=== PATIENT | male | born 1960 | race Caucasian/White ===

== ENCOUNTER 2019-09-22 22:31 | Inpatient (IN) | payer BC ==
[~2019-09-22] VITALS: Ht 172.7 cm; Wt 95.3 kg
[2019-09-22 23:30] VITALS: BP_SYST 114
[2019-09-23] MEDS ORDERED: HYDR25TA4 PO (00:14)
[2019-09-23] MEDS ORDERED: LOSA25TA3 PO (00:14)
[2019-09-23] MEDS ORDERED: ATEN-41 PO (00:14)
[2019-09-23 00:21] LABS: CALCIUM 8.8 mg/dL (8.4-11.0); CREATININE 1.21 mg/dL (0.55-1.30)
[2019-09-23 00:26] LABS: ALBUMIN 3.3 g/dL (3.4-4.8); TOTAL BILIRUBIN 0.7 mg/dL (0.0-1.0)
[2019-09-23 00:30] LABS: BASOPHILS % (AUTO) 0.4 % (0.0-2.0); EOSINOPHILS # (AUTO) 0.2 K/uL (0.0-0.4); EOSINOPHILS % (AUTO) 1.6 % (0.0-4.0); HEMATOCRIT 53.1 % (36-54); LYMPHOCYTES # (AUTO) 1.9 K/uL (1.0-5.5); LYMPHOCYTES % (AUTO) 19.2 % (20.5-51.5); MEAN CORPUSCULAR HEMOGLOBIN 32 pg (27-31); MEAN CORPUSCULAR HGB CONC 34 % (32-36); MEAN CORPUSCULAR VOLUME 95 fL (79.0-98.0); MONOCYTES # (AUTO) 0.7 K/uL (0.0-1.0); MONOCYTES % (AUTO) 7.1 % (1.7-9.3); NEUTROPHILS # (AUTO) 7.2 K/uL (1.8-7.7); NEUTROPHILS % (AUTO) 71.7 % (40.0-70.0); RED BLOOD CELL COUNT(AUTO) 5.61 MIL/uL (4.2-6.2); RED CELL DISTRIBUTION WIDTH 15.4 % (9.0-15.0)
[2019-09-23 00:51] LABS: PLATELET COUNT (AUTO) 189 K/uL (130-430)
[2019-09-23] MEDS ORDERED: NACL 0.9% 1,000 ML IV ONE ×3 (01:02→03:15)
[2019-09-23] MEDS ORDERED: MORPHINE 4 MG/ML INJ. SYRINGE IVP ONE (01:15)
[2019-09-23] MEDS ORDERED: ONDANSETRON HCL 4 MG/2 ML VIAL IVP ONE (01:15)
[2019-09-23] MEDS ORDERED: KETOROLAC TROMETHAMINE 30 MG VIAL IVP ONE (02:15)
[2019-09-23] MEDS ORDERED: DICYCLOMINE HCL 20 MG/2 ML AMP IM ONE (02:15)
[2019-09-23] MEDS ORDERED: ACETAMINOPHEN 325 MG TABLET PO PRN (03:00)
[2019-09-23] MEDS ORDERED: ONDANSETRON HCL 4 MG/2 ML VIAL IVP PRN (03:00)
[2019-09-23] MEDS ORDERED: metroNIDAZOLE 500 mg/NS 100 ML IV ONE (03:00)
[2019-09-23 03:53] LABS: PROTHROMBIN TIME 9.8 SECS (9.5-12.5)
[2019-09-23 04:14] LABS: PHOSPHORUS 3.9 mg/dL (2.7-4.5)
[2019-09-23 05:26] VITALS: BP_SYST 99
[2019-09-23] MEDS ORDERED: LOSA50TA3 PO (05:42)
[2019-09-23 05:55] LABS: FREE T4 (FREE THYROXINE) 0.9 ng/dL (0.6-1.6)
[2019-09-23 05:56] LABS: THYROID STIMULATING HORMONE 2.08 uIu/mL (0.34-4.82)
[2019-09-23 07:45] VITALS: BP_SYST 95
[2019-09-23 12:03] VITALS: BP_SYST 99
[2019-09-23 13:24] LABS: BASOPHILS # (AUTO) 0.3 K/uL (0.0-0.2); BASOPHILS % (AUTO) 2.4 % (0.0-2.0); EOSINOPHILS # (AUTO) 0.5 K/uL (0.0-0.4); EOSINOPHILS % (AUTO) 4.2 % (0.0-4.0); HEMATOCRIT 45.1 % (36-54); HEMOGLOBIN 15.4 g/dL (14.0-18.0); LYMPHOCYTES # (AUTO) 1.7 K/uL (1.0-5.5); MEAN CORPUSCULAR HEMOGLOBIN 32 pg (27-31); MEAN CORPUSCULAR HGB CONC 34 % (32-36); MEAN CORPUSCULAR VOLUME 94 fL (79.0-98.0); MONOCYTES # (AUTO) 0.6 K/uL (0.0-1.0); MONOCYTES % (AUTO) 5.3 % (1.7-9.3); NEUTROPHILS # (AUTO) 8.1 K/uL (1.8-7.7); NEUTROPHILS % (AUTO) 73.1 % (40.0-70.0); PLATELET COUNT (AUTO) 146 K/uL (130-430); RED BLOOD CELL COUNT(AUTO) 4.79 MIL/uL (4.2-6.2); RED CELL DISTRIBUTION WIDTH 15.3 % (9.0-15.0); WHITE BLOOD COUNT (AUTO) 11.1 K/uL (4.8-10.8)
[2019-09-23 13:35] LABS: CALCIUM 7.4 mg/dL (8.4-11.0); CREATININE 1.23 mg/dL (0.55-1.30); POTASSIUM 3.8 mmol/L (3.5-5.1)
[2019-09-23] MEDS: metroNIDAZOLE 500 mg/NS 100 ML IV SCH ×2 (14:19→22:02)
[2019-09-23 16:34] VITALS: BP_SYST 110
[2019-09-23] MEDS: NACL 0.9% 1,000 ML IV SCH (17:11)
[2019-09-23] MEDS: HYDROcodone/ACETAMIN 5-325 MG TAB (NORCO/ VICODIN) PO PRN (18:15)
[2019-09-23] MEDS: LEVOFLOXACIN 500 MG/D5W 100 ML IV SCH (22:02)
[2019-09-24] MEDS: HYDROcodone/ACETAMIN 5-325 MG TAB (NORCO/ VICODIN) PO PRN (01:06)
[2019-09-24] MEDS: NACL 0.9% 1,000 ML IV SCH ×3 (04:02→20:03)
[2019-09-24] MEDS: metroNIDAZOLE 500 mg/NS 100 ML IV SCH ×2 (14:00→22:00)
[2019-09-24] MEDS: LEVOFLOXACIN 500 MG/D5W 100 ML IV SCH (21:00)
[2019-09-25] MEDS: NACL 0.9% 1,000 ML IV SCH ×3 (03:45→19:09)
[2019-09-25] MEDS: metroNIDAZOLE 500 mg/NS 100 ML IV SCH ×3 (06:00→22:00)
[2019-09-25] MEDS ORDERED: IOHEXOL 100 ML IV ONE (10:21)
[2019-09-25] MEDS: LEVOFLOXACIN 500 MG/D5W 100 ML IV SCH (21:00)
[2019-09-26] MEDS ORDERED: LEVOFLOXACIN 500 MG/D5W 100 ML IV ONE (01:02)
[2019-09-26 02:19] VITALS: BP_SYST 122
[2019-09-26] MEDS: NACL 0.9% 1,000 ML IV SCH ×4 (02:51→18:15)
[2019-09-26 05:06] VITALS: BP_SYST 132
[2019-09-26] MEDS: metroNIDAZOLE 500 mg/NS 100 ML IV SCH ×4 (06:00→22:00)
[2019-09-26] MEDS: ATENOLOL 25 MG TABLET(TENORMIN) PO SCH (08:58)
[2019-09-26] MEDS: LACTOBACILLUS RHAMNOSUS GG 1 CAP CAPSULE PO SCH (08:58)
[2019-09-26] MEDS: HYDROCHLOROTHIAZIDE 25 MG TABLET (HCTZ) PO SCH (08:59)
[2019-09-26] MEDS: LOSARTAN POTASSIUM 50 MG TABLET (COZAAR) PO SCH (09:00)
[2019-09-26 11:55] VITALS: BP_SYST 140
[2019-09-26 17:20] VITALS: BP_SYST 132
[2019-09-26 20:00] VITALS: BP_SYST 129
[2019-09-26] MEDS: LEVOFLOXACIN 500 MG/D5W 100 ML IV SCH (21:00)
[2019-09-27] MEDS: NACL 0.9% 1,000 ML IV SCH ×2 (01:57→09:39)
[2019-09-27] MEDS: metroNIDAZOLE 500 mg/NS 100 ML IV SCH (06:00)
[2019-09-27 06:19] LABS: BASOPHILS % (AUTO) 0.4 % (0.0-2.0); EOSINOPHILS # (AUTO) 0.2 K/uL (0.0-0.4); EOSINOPHILS % (AUTO) 2.8 % (0.0-4.0); HEMATOCRIT 45.8 % (36-54); HEMOGLOBIN 15.8 g/dL (14.0-18.0); LYMPHOCYTES # (AUTO) 1.9 K/uL (1.0-5.5); MEAN CORPUSCULAR HEMOGLOBIN 32 pg (27-31); MEAN CORPUSCULAR HGB CONC 35 % (32-36); MEAN CORPUSCULAR VOLUME 94 fL (79.0-98.0); MONOCYTES # (AUTO) 0.8 K/uL (0.0-1.0); MONOCYTES % (AUTO) 11.2 % (1.7-9.3); NEUTROPHILS # (AUTO) 4.1 K/uL (1.8-7.7); NEUTROPHILS % (AUTO) 58.6 % (40.0-70.0); PLATELET COUNT (AUTO) 186 K/uL (130-430); RED BLOOD CELL COUNT(AUTO) 4.89 MIL/uL (4.2-6.2); RED CELL DISTRIBUTION WIDTH 15.4 % (9.0-15.0)
[2019-09-27 06:29] LABS: CALCIUM 8.4 mg/dL (8.4-11.0); CREATININE 0.94 mg/dL (0.55-1.30); POTASSIUM 3.5 mmol/L (3.5-5.1)
[2019-09-27 07:15] VITALS: BP_SYST 129
[2019-09-27] MEDS: HYDROCHLOROTHIAZIDE 25 MG TABLET (HCTZ) PO SCH (08:59)
[2019-09-27] MEDS: LACTOBACILLUS RHAMNOSUS GG 1 CAP CAPSULE PO SCH (08:59)
[2019-09-27] MEDS: LOSARTAN POTASSIUM 50 MG TABLET (COZAAR) PO SCH (09:00)
[2019-09-27] MEDS: ATENOLOL 25 MG TABLET(TENORMIN) PO SCH (09:02)
[2019-09-27] MEDS ORDERED: LEVO750T45 PO (09:50)
[2019-09-27] MEDS ORDERED: METR500T PO (09:50)
[2019-09-27 10:23] VITALS: BP_SYST 123
[2019-09-27 11:07] VITALS: BP_SYST 123
[2019-10-06 11:49] LABS: HEMATOCRIT 44.5 % (36-54); HEMOGLOBIN 14.9 g/dL (14.0-18.0); LYMPHOCYTES % (AUTO) 21.4 % (20.5-51.5); MEAN CORPUSCULAR HEMOGLOBIN 32 pg (27-31); MEAN CORPUSCULAR HGB CONC 33 % (32-36); MEAN CORPUSCULAR VOLUME 95 fL (79.0-98.0); NEUTROPHILS % (AUTO) 70.7 % (40.0-70.0); PLATELET COUNT (AUTO) 133 K/uL (130-430); RED CELL DISTRIBUTION WIDTH 15.4 % (9.0-15.0); WHITE BLOOD COUNT (AUTO) 9.5 K/uL (4.8-10.8)
[2019-10-06 11:50] LABS: BASOPHILS % (AUTO) 0.3 % (0.0-2.0); EOSINOPHILS % (AUTO) 1.1 % (0.0-4.0); MONOCYTES % (AUTO) 6.5 % (1.7-9.3)
[2019-10-06 11:50] LABS: HEMATOCRIT 44.5 % (36-54); HEMOGLOBIN 14.9 g/dL (14.0-18.0); LYMPHOCYTES % (AUTO) 21.4 % (20.5-51.5); MEAN CORPUSCULAR HEMOGLOBIN 32 pg (27-31); MEAN CORPUSCULAR HGB CONC 33 % (32-36); MEAN CORPUSCULAR VOLUME 95 fL (79.0-98.0); MONOCYTES % (AUTO) 6.5 % (1.7-9.3); NEUTROPHILS % (AUTO) 70.7 % (40.0-70.0); PLATELET COUNT (AUTO) 133 K/uL (130-430); RED CELL DISTRIBUTION WIDTH 15.4 % (9.0-15.0); WHITE BLOOD COUNT (AUTO) 9.5 K/uL (4.8-10.8)
[2019-10-06 11:51] LABS: CALCIUM 7.5 mg/dL (8.4-11.0); POTASSIUM 3.6 mmol/L (3.5-5.1)
[2019-10-06 11:51] LABS: BASOPHILS % (AUTO) 0.3 % (0.0-2.0); EOSINOPHILS % (AUTO) 1.1 % (0.0-4.0)
[2019-10-06 11:52] LABS: CREATININE 1.06 mg/dL (0.55-1.30); PHOSPHORUS 2.2 mg/dL (2.7-4.5)
[2019-10-06 11:52] LABS: CALCIUM 7.5 mg/dL (8.4-11.0); POTASSIUM 3.6 mmol/L (3.5-5.1)
[2019-10-06 11:53] LABS: CREATININE 1.06 mg/dL (0.55-1.30)
[2019-10-06 11:54] LABS: BARBITURATE, URINE NEGATIVE (NEG <=200); BENZODIAZEPINE, URINE NEGATIVE (NEG <=150); CANNABINOID, URINE NEGATIVE (NEG <=50); COCAINE, URINE NEGATIVE (NEG <=150); METHAMPHETAMINES SCREEN,URINE NEGATIVE (NEG <=500); OPIATE, URINE POSITIVE (NEG <=100); PHENCYCLIDINE SCREEN,URINE NEGATIVE (NEG <=25); UR TRICYCLIC ANTIDEPRESSANTS NEGATIVE (NEG <=300); URINE AMPHETAMINE NEGATIVE (NEG <=500); URINE METHADONE NEGATIVE (NEG <=200); URINE OXYCODONE SCREEN NEGATIVE (NEG <=100); URINE PROPOXYPHENE SCREEN NEGATIVE (NEG <=300)
[2019-10-06 11:54] LABS: BARBITURATE, URINE NEGATIVE (NEG <=200); BENZODIAZEPINE, URINE NEGATIVE (NEG <=150); CANNABINOID, URINE NEGATIVE (NEG <=50); COCAINE, URINE NEGATIVE (NEG <=150); METHAMPHETAMINES SCREEN,URINE NEGATIVE (NEG <=500); OPIATE, URINE POSITIVE (NEG <=100); PHENCYCLIDINE SCREEN,URINE NEGATIVE (NEG <=25); UR TRICYCLIC ANTIDEPRESSANTS NEGATIVE (NEG <=300); URINE AMPHETAMINE NEGATIVE (NEG <=500); URINE METHADONE NEGATIVE (NEG <=200); URINE OXYCODONE SCREEN NEGATIVE (NEG <=100); URINE PROPOXYPHENE SCREEN NEGATIVE (NEG <=300)
[2019-10-16 15:39] LABS: POTASSIUM 3.8 mmol/L (3.5-5.1)
[2019-10-16 15:40] LABS: ALBUMIN 2.4 g/dL (3.4-4.8); CALCIUM 7.9 mg/dL (8.4-11.0); CREATININE 0.94 mg/dL (0.55-1.30); TOTAL BILIRUBIN 0.9 mg/dL (0.0-1.0)
[2019-10-16 15:41] LABS: RED BLOOD CELL COUNT(AUTO) 4.83 MIL/uL (4.2-6.2); WHITE BLOOD COUNT (AUTO) 9.3 K/uL (4.8-10.8)
[2019-10-16 15:42] LABS: BASOPHILS % (AUTO) 0.4 % (0.0-2.0); EOSINOPHILS % (AUTO) 1.8 % (0.0-4.0); HEMOGLOBIN 15.3 g/dL (14.0-18.0); LYMPHOCYTES # (AUTO) 1.8 K/uL (1.0-5.5); LYMPHOCYTES % (AUTO) 19.5 % (20.5-51.5); MEAN CORPUSCULAR HEMOGLOBIN 32 pg (27-31); MEAN CORPUSCULAR HGB CONC 34 % (32-36); MEAN CORPUSCULAR VOLUME 94 fL (79.0-98.0); MONOCYTES % (AUTO) 7.4 % (1.7-9.3); NEUTROPHILS # (AUTO) 6.6 K/uL (1.8-7.7); NEUTROPHILS % (AUTO) 70.9 % (40.0-70.0); PLATELET COUNT (AUTO) 151 K/uL (130-430); RED CELL DISTRIBUTION WIDTH 15.4 % (9.0-15.0)
[2019-10-16 15:43] LABS: EOSINOPHILS # (AUTO) 0.2 K/uL (0.0-0.4); MONOCYTES # (AUTO) 0.7 K/uL (0.0-1.0)
== END 2019-09-27 11:00 | disposition home or self-care (01) | DRG 392 ==
LOC: SED 22:31 → SMU 09-23 02:59
PROVIDERS: ADMIT Family Medicine; ATTEND Family Medicine
DX: K57.20 Diverticulitis of large intestine with perforation and abscess without bleeding (principal); E44.0 Moderate protein-calorie malnutrition; E87.1 Hypo-osmolality and hyponatremia; I10 Essential (primary) hypertension; F17.210 Nicotine dependence, cigarettes, uncomplicated; E66.9 Obesity, unspecified; K44.9 Diaphragmatic hernia without obstruction or gangrene; K76.0 Fatty (change of) liver, not elsewhere classified; E83.51 Hypocalcemia; I70.209 Unspecified atherosclerosis of native arteries of extremities, unspecified extremity; Z79.899 Other long term (current) drug therapy; Z68.31 Body mass index [BMI] 31.0-31.9, adult; Z88.0 Allergy status to penicillin
CPT/HCPCS: 36415; 80048; 80053; 80061; 80307; 83036; 83605; 83690-TC; 83735-TC; 83880; 84100-TC; 84439; 84443-TC; 84484; 85025; 85610-TC; 85730-TC; 87040-TC; 96361; 96365; 96372; 96375; 99285; J0500; J1885; J1956; J2270; J2405; J3490; J7030; Q9967

== ENCOUNTER 2019-10-02 07:41 | Outpatient (CLI) | payer BC ==
[~2019-10-02 07:41] MED LIST: ATEN-41 PO; HYDR25TA4 PO; LEVO750T45 PO; LOSA50TA3 PO; METR500T PO
[2019-10-02] MEDS ORDERED: IOHEXOL 100 ML IV ONE (10:38)
== END 2019-10-02 19:09 | disposition home or self-care (01) ==
LOC: SCT 07:41
PROVIDERS: ATTEND Surgery
DX: K57.30 Diverticulosis of large intestine without perforation or abscess without bleeding (principal)
CPT/HCPCS: 74177; Q9967

== ENCOUNTER 2019-11-04 12:14 | Outpatient (CLI) | payer BC ==
[2019-11-04] MEDS ORDERED: IOHEXOL 100 ML IV ONE (14:36)
== END 2019-11-04 17:57 | disposition home or self-care (01) ==
LOC: SCT 12:14
DX: N28.1 Cyst of kidney, acquired (principal); K76.89 Other specified diseases of liver; I70.90 Unspecified atherosclerosis; K57.30 Diverticulosis of large intestine without perforation or abscess without bleeding
CPT/HCPCS: 74177; Q9967